=== PATIENT | female | born 1990 | race Caucasian/White ===

== ENCOUNTER 2017-11-16 04:21 | Inpatient (IN) | payer BC ==
[2017-11-16] MEDS: LACTATED RINGER'S 1,000 ML IV ×3 (04:20→17:14)
[2017-11-16] MEDS ORDERED: METHYLERGONOVINE 0.2 MG INJ IM ×2 (04:30→08:00)
[2017-11-16] MEDS ORDERED: CARBOPROST 250 MCG INJ IM ×2 (04:30→08:00)
[2017-11-16] MEDS ORDERED: OXYTOCIN 30 UNITS/LR 500 ML IV ×3 (04:30→08:00)
[2017-11-16] MEDS ORDERED: MISOPROSTOL 200 MCG TAB PR ×2 (04:30→08:00)
[2017-11-16] MEDS ORDERED: CEFAZOLIN 2 GM/50 ML (PMX) 50 ML IVPB (04:33)
[2017-11-16 05:05] LABS: ADD MAN DIFF? NO
[2017-11-16 05:20] LABS: WHITE BLOOD COUNT 12.6 10^3/ul (4.8-10.8)
[2017-11-16 05:20] LABS: BASOPHIL # 0.1 10^3/ul (0.0-0.1); BASOPHILS % 0.6 % (0.0-2.0); EOSINOPHILS # 0.2 10^3/ul (0.0-0.5); EOSINOPHILS % 1.3 % (0.0-7.0); HEMATOCRIT 38.3 % (37.0-47.0); HEMOGLOBIN 12.4 g/dl (12.0-16.0); MEAN CORPUSCULAR HGB CONC 32.4 g/dl (32.0-37.0); MEAN CORPUSCULAR VOLUME 83.3 fl (82.0-101.0); MEAN PLATELET VOLUME 11.8 fl (7.4-10.4); MONOCYTES % 7.8 % (0.0-11.0); NEUTROPHIL # 7.3 10^3/ul (1.6-7.5); NEUTROPHILS % 57.8 % (39.0-77.0); PLATELET COUNT 257 10^3/UL (140-415); RED CELL DISTRIBUTION WIDTH 14.9 % (11.5-14.5)
[2017-11-16 05:45] LABS: INR 0.87; PROTIME 11.9 Sec (11.9-14.9); PT RATIO 0.9
[2017-11-16 05:46] LABS: PARTIAL THROMBOPLASTIN TIME 28.8 Sec (25.0-35.0)
[2017-11-16] MEDS ORDERED: morphine SULFATE/PF (10 MG/10 ML) INJ (06:35)
[2017-11-16] MEDS ORDERED: PHENYLephrine (100 MCG/ML) 5ML SYG (06:35)
[2017-11-16] MEDS ORDERED: OXYTOCIN 10 UNIT INJ (06:35)
[2017-11-16] MEDS ORDERED: FENTAnyl 50 MCG/ML VIAL (06:35)
[2017-11-16] MEDS ORDERED: METOCLOPRAMIDE 10 MG INJ (06:35)
[2017-11-16] MEDS: CEFAZOLIN 2 GM/50 ML (PMX) 50 ML IV (06:37)
[2017-11-16 06:45] LABS: HEPATITIS B SURFACE ANTIGEN NEGATIVE (NEGATIVE)
[2017-11-16] MEDS ORDERED: DIPHENHYDRAMINE 50 MG INJ (07:07)
[2017-11-16] MEDS ORDERED: EPHEDrine SULFATE 50 MG/5 ML SYG IV (07:30)
[2017-11-16] MEDS ORDERED: morphine 4 MG/ML VIAL IV (07:30)
[2017-11-16] MEDS ORDERED: DIPHENHYDRAMINE 50 MG INJ IV ×4 (07:30→10:00)
[2017-11-16] MEDS ORDERED: ALBUTEROL 0.083% (NEB) 2.5 MG/3 ML AMP HHN (07:30)
[2017-11-16] MEDS ORDERED: NALOXONE (0.4 MG/ML) INJ IV ×2 (07:30→10:00)
[2017-11-16] MEDS ORDERED: HYDROmorphONE (0.2 MG/ML) 10ML SYG IV ×5 (07:30→10:00)
[2017-11-16] MEDS ORDERED: OXYCODONE/ACETAMINOPHEN (5/325) TAB PO ×2 (07:30)
[2017-11-16] MEDS ORDERED: MEPERIDINE 25 MG INJ IV (07:30)
[2017-11-16] MEDS ORDERED: morphine 2 MG INJ IV (07:30)
[2017-11-16] MEDS ORDERED: ONDANSETRON 4 MG INJ IV ×4 (07:30→10:00)
[2017-11-16] MEDS ORDERED: TRIMETHOBENZAMIDE 100 MG/ML VIAL IM ×2 (07:30)
[2017-11-16] MEDS ORDERED: LABETALOL HCL 20MG INJ IV (07:30)
[2017-11-16] MEDS ORDERED: hydrALAzine 20 MG INJ IV (07:30)
[2017-11-16] MEDS ORDERED: MIDAZOLAM 1 MG/ML 2 ML INJ IV (07:30)
[2017-11-16] MEDS ORDERED: IPRATROPIUM (NEB) 0.5 MG/2.5 ML AMP HHN (07:30)
[2017-11-16] MEDS ORDERED: FENTAnyl 50 MCG/ML VIAL IV ×5 (07:30→10:00)
[2017-11-16] MEDS ORDERED: NALBUPHINE HCL (10 MG/1 ML) INJ IV (07:30)
[2017-11-16] MEDS ORDERED: KETOROLAC 30 MG INJ IV ×2 (07:30→10:00)
[2017-11-16] MEDS ORDERED: KETOROLAC 30 MG INJ (09:45)
[2017-11-16] MEDS: KETOROLAC 30 MG INJ IV ×3 (09:58→22:11)
[2017-11-16] MEDS ORDERED: METOCLOPRAMIDE 10 MG INJ IV (10:00)
[2017-11-16] MEDS ORDERED: HYDROmorphONE 0.5 MG/0.5 ML SYG IV ×2 (10:00)
[2017-11-16] MEDS ORDERED: HYDROmorphONE 1 MG/ML SYG IV ×2 (10:30)
[2017-11-16 22:24] LABS: RAPID PLASMA REAGIN NONREACTIVE (NR)
[2017-11-17] MEDS: LACTATED RINGER'S 1,000 ML IV (02:01)
[2017-11-17] MEDS: KETOROLAC 30 MG INJ IV (04:19)
[2017-11-17] MEDS: HYDROCODONE/APAP (5/325) TAB PO ×3 (09:45→21:34)
[2017-11-17] MEDS: LANOLIN 7 GM TUBE TOP (09:45)
[2017-11-17 11:22] LABS: ADD MAN DIFF? NO
[2017-11-17 11:30] LABS: WHITE BLOOD COUNT 12.8 10^3/ul (4.8-10.8)
[2017-11-17 11:30] LABS: BASOPHIL # 0.1 10^3/ul (0.0-0.1); BASOPHILS % 0.6 % (0.0-2.0); EOSINOPHILS # 0.2 10^3/ul (0.0-0.5); EOSINOPHILS % 1.3 % (0.0-7.0); HEMOGLOBIN 10.6 g/dl (12.0-16.0); LYMPHOCYTES # 2.1 10^3/ul (0.8-2.9); LYMPHOCYTES % 16.7 % (15.0-51.0); MEAN CORPUSCULAR HEMOGLOBIN 27.6 pg (29.0-33.0); MEAN CORPUSCULAR HGB CONC 32.1 g/dl (32.0-37.0); MEAN CORPUSCULAR VOLUME 85.9 fl (82.0-101.0); MEAN PLATELET VOLUME 11.2 fl (7.4-10.4); MONOCYTE # 0.8 10^3/ul (0.3-0.9); MONOCYTES % 6.6 % (0.0-11.0); NEUTROPHIL # 9.5 10^3/ul (1.6-7.5); NEUTROPHILS % 74.3 % (39.0-77.0); PLATELET COUNT 230 10^3/UL (140-415); RED BLOOD COUNT 3.84 10^6/ul (4.20-5.40); RED CELL DISTRIBUTION WIDTH 15.5 % (11.5-14.5)
[2017-11-17] MEDS: IBUPROFEN 600 MG TAB PO ×3 (11:49→23:28)
[2017-11-18] MEDS: IBUPROFEN 600 MG TAB PO ×3 (05:35→17:52)
[2017-11-18] MEDS: HYDROCODONE/APAP (5/325) TAB PO ×2 (10:07→15:37)
[2017-11-19] MEDS: IBUPROFEN 600 MG TAB PO ×3 (00:33→12:24)
[2017-11-19] MEDS: HYDROCODONE/APAP (5/325) TAB PO (12:25)
== END 2017-11-19 14:00 | disposition home or self-care (01) | DRG 766 ==
LOC: L-D 04:21 → PP1 10:52
PROVIDERS: Obstetrics & Gynecology Obstetrics
PROC: 10D00Z1 Extraction of Products of Conception, Low, Open Approach (ICD-10-PCS; principal; 2017-11-16 06:00)
PROC: 3E033VJ Introduction of Other Hormone into Peripheral Vein, Percutaneous Approach (ICD-10-PCS; 2017-11-16 06:00)
DX: O32.1XX0 Maternal care for breech presentation, not applicable or unspecified (principal); Z37.0 Single live birth; Z3A.39 39 weeks gestation of pregnancy
CPT/HCPCS: 85025; 85610; 85730; 86592; 86850; 86900; 86901; 87340; 94760; 99464